=== PATIENT | female | born 1960 ===

== ENCOUNTER 2025-07-14 10:00 | Day surgery (SDC) | payer MEDICARE, SELFPAY ==
--- NOTE | 2025-05-13 14:05 | CM ---
CM received call from patient to discuss discharge planning. Patient stated that she is unable to go to outpatient physical therapy as she cannot negotiate the stairs several times a week to go to her appointment. Patient further stated that she
will not have a ride for her outpatient physical therapy appointments. CM stated that PT will work with patient to help with stair prior to her discharge. Patient stated that she 'cannot image' how that would work.
CM discussed home care options for patient. CM stated that orthopedic physician planning assistant will speak with patient to discuss discharge plan. CM arrange for home care if needed on discharge.
Patient stated that she will also be working during her recovery and may not have the time to go to her outpatient appointments.
CM will remain available as needed.
[2025-06-23 11:23] LABS: Hematocrit 33.5 % (37.0-47.0); Hemoglobin 10.9 g/dL (12.0-16.0); Mean Corp Hgb Conc. 32.5 g/dL (33.0-37.0); Mean Corpuscular Volume 92.5 fL (81.0-99.0); Platelet Count 237 10^3/uL (130-400); Red Cell Dist. Width 13.4 % (11.5-14.5)
[2025-06-23 12:33] LABS: ALT (SGPT) 16 U/L (0-35); AST (SGOT) 22 U/L (14-36); Albumin 4.0 g/dl (3.5-5.0); Alkaline Phosphatase 82 U/L (38-126); Blood Urea Nitrogen 25 mg/dl (7-17); Calcium 10.0 mg/dl (8.4-10.2); Carbon Dioxide 27 mmol/L (22-30); Chloride 105 mmol/L (98-107); Glucose 75 mg/dl (70-99); Potassium 4.1 mmol/L (3.5-5.1); Sodium 139 mmol/L (135-145); Total Protein 6.5 g/dl (6.3-8.2); eGFR 45.35
[2025-06-23 14:16] LABS: Glycohemoglobin (HgbA1c) 4.6 % (4.0-5.6)
[2025-06-23 14:18] VITALS: BMI 28.9
[2025-06-23 14:33] VITALS: BMI 28.9
[2025-06-23 17:37] LABS: Iron 58 ug/dl (37-170)
[2025-06-23 17:46] LABS: Total Iron Binding Capacity 271 ug/dl (265-497)
[2025-06-23 18:45] LABS: Ferritin 58.8 ng/ml (11.1-264.0)
[2025-06-23 19:00] LABS: Vitamin B12 538 pg/ml (239-931)
--- NOTE | 2025-06-26 13:47 | CM ---
LJ spoke with patient and she stated that she wants VN because she is unable to do stairs. [facility] does not service her address. LJ sent preliminary referral via [facility] to [facility]. CM will await acceptance.
[2025-07-14] VITALS (10 sets, daily range): BP systolic 139–174; BP diastolic 81–105; PULSE 80–86; O2SAT 96–97; BMI 28.9
[2025-07-14] MEDS: NORMOSOL-R/PLASMALYTE-A 1000 IV ×2 (10:56→15:50)
[2025-07-14] MEDS: VANCOCIN 530 MG IV (10:56)
[2025-07-14] MEDS: CELEBREX 200 MG PO (11:00)
[2025-07-14] MEDS: TYLENOL 650 MG PO ×3 (11:00→21:57)
--- NOTE | 2025-07-14 11:48 | W.PN.UPDATE ---
Update Note
Progress Note Update
R knee OA s/p R TKA w/ Dr Silva 07/14/25
- EARLY DISCHARGE
DVT prophylaxis - ASA, b/l venous foot pumps
HTN - + parameters - monitor BP
CKD 3 based on current GFR - minimize nephrotoxins
GERD - continue PPI therapy
Anemia - ? of chronic disease in setting of CKD - monitor H&H in AM
- Of note, iron/vit b12 stores WNL
- Scopes reportedly UTD
MRSA + nasal screen - IV Vanco in addition to IV Ancef marcelo-op
- Started on nasal Mupirocin pre-op. Will advise continuing this for 3 weeks post-op as incision heals
Colon polyps
Scoliosis
Thyroid nodules
Breast cancer, 15 years ago, s/p right lumpectomy and radiation.
Remote tobacco abuse
[2025-07-14] MEDS: DILAUDID 0.5 MG IV (14:13)
[2025-07-14] MEDS: ROXICODONE 5 MG PO (14:43)
[2025-07-14] MEDS: COMPAZINE 5 MG PO (15:28)
[2025-07-14] MEDS: APRESOLINE 25 MG PO (15:44)
--- NOTE | 2025-07-14 15:57 | PTCARENOTE ---
PT arrived 1503 from PACU. aaox3. Bp elevated, and complaints of nausea, medicated per DEC. 97% on 2LO2. primaseal with small old drainiage. Significant other at bedside. Oriented to room and call ortiz.
[2025-07-14] MEDS: PROTONIX 20 MG PO (17:07)
[2025-07-14] MEDS: ASPIRIN 325 MG PO (17:07)
[2025-07-14] MEDS: BACTROBAN 2% OINTMENT 1 APPLIC NASAL (21:56)
[2025-07-14] MEDS: NEURONTIN 300 MG PO (21:57)
[2025-07-14] MEDS: COLACE PO (21:57)
[2025-07-14] MEDS: DECADRON 4 MG PO (21:57)
[2025-07-14] MEDS: SENOKOT PO (21:57)
[2025-07-14] MEDS: ANCEF 5 IV (21:58)
[2025-07-14] MEDS: APRESOLINE PO (21:58)
[2025-07-14] MEDS: ROXICODONE 2.5 MG PO (23:00)
[2025-07-14] MEDS: VANCOCIN 200 IV (23:02)
[2025-07-15] MEDS: TYLENOL PO (00:02)
[2025-07-15] MEDS: TYLENOL 650 MG PO ×2 (03:03→08:56)
[2025-07-15] MEDS: ANCEF 5 IV (03:03)
[2025-07-15 03:05] VITALS: BP 135/79
[2025-07-15] MEDS: ROXICODONE 5 MG PO (06:21)
[2025-07-15 07:00] VITALS: BP 146/85
[2025-07-15 07:19] LABS: Hematocrit 27.5 % (37.0-47.0); Hemoglobin 9.3 g/dL (12.0-16.0)
--- NOTE | 2025-07-15 08:34 | CM ---
Addendum entered by Agueda Kingsley RN 07/15/25 10:28:
Cm confirmed that [facility] will be out tomorrow at 07/16. CM provided patient with phone number.
Addendum entered by Agueda Kingsley RN 07/15/25 08:52:
CM updated [facility] that patient will need a 24 hour visit. CM will await [facility] response.
Original Note:
Cm reviewed medical records. Plan for discharge to home with [facility].
PLAN: [facility]
[2025-07-15] MEDS: PROTONIX 20 MG PO (08:56)
[2025-07-15] MEDS: COLACE 100 MG PO (08:56)
[2025-07-15] MEDS: ASPIRIN 325 MG PO (08:56)
[2025-07-15] MEDS: APRESOLINE 25 MG PO (08:56)
[2025-07-15] MEDS: SENOKOT 17.2 MG PO (08:56)
[2025-07-15] MEDS: DECADRON 4 MG PO (08:56)
[2025-07-15] MEDS: BACTROBAN 2% OINTMENT 1 APPLIC NASAL (08:56)
[2025-07-15] MEDS: NEURONTIN PO (08:58)
--- NOTE | 2025-07-15 09:12 | W.PN.ORTHO ---
Today's Communication / Plan
-
Await PT and OT recs.
D/c later this morning if remaining clinically stable.
Assessment
.
Distal Motor Intact: Yes
Dressing:
Small areas of old bleeding along the incision line.
Assessment:
R knee OA s/p R TKA w/ Dr Silva 07/14/25
- EARLY DISCHARGE
DVT prophylaxis - ASA, b/l venous foot pumps
HTN - + parameters - BPs overall stable
CKD 3 based on current GFR - minimize nephrotoxins
GERD - continue PPI therapy
Anemia - ? of chronic disease in setting of CKD - H&H 10.9 pre-op -> 9.3 post-op
- Asymptomatic, hemodynamically stable
- Hgb likely higher given hemodilution from IVF overnight
- Of note, iron/vit b12 stores WNL
- Scopes reportedly UTD
MRSA + nasal screen - IV Vanco in addition to IV Ancef marcelo-op
- Started on nasal Mupirocin pre-op. Will advise continuing this for 3 weeks post-op as incision heals
Colon polyps
Scoliosis
Thyroid nodules
Breast cancer, 15 years ago, s/p right lumpectomy and radiation.
Remote tobacco abuse
Plan
.
Surgery / Date: R TKA w/ Dr Silva 07/14/25
DVT Prophylaxis: Aspirin
Activity:
Out of bed.
PT/OT
Discharge Plan: Home w/ VN
Subjective
.
.:
Patient resting comfortably in her chair.
R knee pain tolerable w/ current pain meds.
Denies any new significant complaints.
Eager for potential early discharge today.
Vital Signs and Labs
.
Vital Signs and Labs:
Lab Results
07/15/25 06:45
06/23/25 10:01
Temp Pulse Resp BP Pulse Ox
98.9 F 86 16 146/85 97
07/15/25 07:00 07/15/25 08:56 07/15/25 07:00 07/15/25 08:56 07/15/25 07:00
Physical Exam
-
HEENT: No pallor, cyanosis, or jaundice. Throat clear.
NECK: Supple. No JVD.
RESPIRATORY: Lungs clear to auscultation.
CVS: S1, S2 normal. RRR.�
ABDOMEN: Soft, non-tender. No distension.
EXTREMITIES: Strength equal, no calf pain with palpation/dorsiflexion. Calves soft.
ACIDIZER HELPER: AOx3. No focal deficits. floor coverer apprentice grossly intact
--- NOTE | 2025-07-15 09:21 | W.DS.TRANS ---
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
-
Discharge Instructions:
Sleep Apnea Risk Intermediate
Discharge Diagnosis/Procedures R knee OA s/p R TKA w/ Dr Silva 07/14/25
Diet Regular
Additional Diets Adequate hydration, minimize opioids, and wear
TEDs stockings to prevent low blood pressure/
dizziness.
Activity With Walker,As tolerated
Driving Restrictions Not until seen by your Dr
Bathing Restrictions OK to Shower
Other Services PT,VN
Wound Care Dressing to be removed 1 week post-surgery.
[place] to be removed at 2 week follow-up with
surgeon's office.
Instructions:
Stand-Alone Forms: Total Hip/Knee Replacement D/C
Changes to Home Medications: Yes
Discharge Medications:
DC Medications w/original date entered in [employer]
gabapentin 300 mg capsule 300 mg PO BID Neurological Condition 06/20/25
multivitamin 1 tab PO DAILY Supplement 06/20/25
mupirocin 2 % topical ointment 1 applic topical BID infection prevention #1 tube 06/20/25
omeprazole 20 mg capsule,delayed release 20 mg PO DAILY Gastrointestinal Issue 06/20/25
tirzepatide 15 mg/0.5 mL subcutaneous pen injector (Mounjaro) 15 mg SC QWEEK 06/20/25
dexamethasone 4 mg tablet 4 mg PO BID inflammation #6 tabs 06/23/25
oxycodone 5 mg tablet 5 mg PO Q6H PRN 1 tab moderate pain, 2 tabs severe pain #30 tabs 06/23/25
acetaminophen 500 mg tablet (Tylenol Extra Strength) 1,000 mg (2 x 500 mg) PO Q6H #60 tabs 07/15/25
aspirin 325 mg tablet 325 mg PO DAILY #1 tab 07/15/25
docusate sodium 100 mg capsule 100 mg PO BID #30 caps 07/15/25
hydralazine 25 mg tablet 25 mg PO TID Blood Pressure #1 tab 07/15/25
magnesium hydroxide 400 mg/5 mL oral suspension (Milk of Magnesia) 30 ml PO HS PRN constipation #3,000 mL 07/15/25
ondansetron HCl 4 mg tablet 4 mg PO Q6H PRN nausea and vomiting #30 tabs 07/15/25
sennosides 8.6 mg tablet (Anne-Marie-juan miguel) 17.2 mg (2 x 8.6 mg) PO BID #30 tabs 07/15/25
Home Medication Changes
dexamethasone 4 mg tablet 4 mg PO BID inflammation #6 tabs 06/23/25
oxycodone 5 mg tablet 5 mg PO Q6H PRN 1 tab moderate pain, 2 tabs severe pain #30 tabs 06/23/25
acetaminophen 500 mg tablet (Tylenol Extra Strength) 1,000 mg (2 x 500 mg) PO Q6H #60 tabs 07/15/25
aspirin 325 mg tablet 325 mg PO DAILY #1 tab 07/15/25
docusate sodium 100 mg capsule 100 mg PO BID #30 caps 07/15/25
magnesium hydroxide 400 mg/5 mL oral suspension (Milk of Magnesia) 30 ml PO HS PRN constipation #3,000 mL 07/15/25
ondansetron HCl 4 mg tablet 4 mg PO Q6H PRN nausea and vomiting #30 tabs 07/15/25
sennosides 8.6 mg tablet (Anne-Marie-juan miguel) 17.2 mg (2 x 8.6 mg) PO BID #30 tabs 07/15/25
Pending Results: No
[2025-07-15 09:22] VITALS: BP 149/86; PULSE 83; O2SAT 97
[2025-07-15 10:10] VITALS: BP 149/86; PULSE 91
[2025-07-15] MEDS: ROXICODONE 10 MG PO (10:54)
[2025-07-15 11:00] VITALS: BP 133/77
== END 2025-07-15 12:10 | disposition home health service (06) ==
LOC: SDS 10:00
PROVIDERS: Physician Assistant; ATTENDING PHYSICIAN Specialist; FAMILY PHYSICIAN Family Medicine
PROC: 0SRC0J9 Replacement of Right Knee Joint with Synthetic Substitute, Cemented, Open Approach (ICD-10-PCS; 2025-07-14)
DX: M17.11 Unilateral primary osteoarthritis, right knee (principal); C50.919 Malignant neoplasm of unspecified site of unspecified female breast; Z87.891 Personal history of nicotine dependence; M41.9 Scoliosis, unspecified; N18.30 Chronic kidney disease, stage 3 unspecified; I12.9 Hypertensive chronic kidney disease with stage 1 through stage 4 chronic kidney disease, or unspecified chronic kidney disease; K21.9 Gastro-esophageal reflux disease without esophagitis; D64.9 Anemia, unspecified; K63.5 Polyp of colon
CPT/HCPCS: 27447; 36415; 73560; 80053; 82607; 82728; 83036; 83540; 83550; 85014; 85018; 85027; 86850; 86900; 86901; 87070; 87147; 93005; 97110; 97116; 97163; 97166; 97530; 97535; C1713; C1776